=== PATIENT | male | born 1940 | race Caucasian/White ===

== ENCOUNTER 2017-10-24 18:08 | Outpatient (CLI) | END 2017-10-24 18:09 | disposition short-term general hospital (02) | LOC: AMBL 18:08 | PROVIDERS: ATTEND Internal Medicine | DX: R55 Syncope and collapse (principal); R53.1 Weakness; R11.2 Nausea with vomiting, unspecified ==

== ENCOUNTER 2017-11-16 11:53 | Outpatient (CLI) | END 2017-11-16 11:54 | disposition home or self-care (01) | LOC: CAR 11:53 | PROVIDERS: ATTEND Internal Medicine | DX: R06.02 Shortness of breath (principal); J44.9 Chronic obstructive pulmonary disease, unspecified; F17.210 Nicotine dependence, cigarettes, uncomplicated | CPT/HCPCS: 82803 ==